=== PATIENT | male | born 1955 | race Native Hawaiian/Other Pacific Islander ===

== ENCOUNTER 2018-04-27 14:52 | Emergency (ER) | payer OTHER ==
--- NOTE | 2018-04-27 16:26 | Emergency Department Report ---
Blank Doc - Documentation Documentation: Patient is a 62-year-old male who slipped getting out of the shower last night and hit his head on the toilet. Patient does not remember the entire incident and was possibly amnesia to the event. Patient also does have some persistent dizziness and a mild headache as well. Patient will be sent for CT head and C-spine to rule o life-threatening conditions and reassessed ut
[2018-04-27] MEDS ORDERED: PERCOCET 5/325 PO ONE (16:32)
--- NOTE | 2018-04-27 16:36 | Emergency Department Report ---
ED Fall HPI - General Chief Complaint: Fall Stated Complaint: FELL AND HURT HEAD Time Seen by Provider: 04/27/18 16:21 Source: patient, family Mode of arrival: Ambulatory Limitations: No Limitations - History of Present Illness Initial Comments: Patient is a 62-year-old male who slipped getting out of the shower last night and hit his head on the toilet. Patient does not remember the entire incident and was possibly amnesia to the event. Patient also does have some persistent dizziness and a mild headache as well. Pain is 6 out of 10 and achy right side of head. Denies any cuts to his head. Tetanus vaccine is up-to -date. Denies any nausea or vomiting. Patient stated be evaluated status post fall MD Complaint: fall -: This evening Fall From: standing When Fall Occurred: other (last night) Fall Witnessed: yes, by family Place Fall Occurred: home Loss of Consciousness: unsure Prolonged Down Time?: no Symptoms Prior to Fall: none Location: head Severity: moderate Severity scale (0 -10): 6 Quality: aching Context: tripped/slipped Associated Symptoms: headache, lightheaded. denies: neck pain, numbness, weakness, chest paint, shortness of breath, abdominal pain, hematuria, unable to walk, vertigo, confusion - Related Data Previous Rx's Medication Instructions Recorded Last Taken Type Acetaminophen [Non-Aspirin Pain 500 mg PO Q8H PRN #12 tablet 04/27/18 Unknown Rx Relief] Allergies Allergy/AdvReac Type Severity Reaction Status Date / Time Penicillins Allergy Rash Verified 04/27/18 14:58 ED Review of Systems ROS: Stated complaint: FELL AND HURT HEAD Other details as noted in HPI Comment: All other systems reviewed and negative Constitutional: denies: chills, fever Eyes: denies: eye pain, vision change ENT: denies: ear pain, throat pain Respiratory: denies: cough, shortness of breath, SOB with exertion, SOB at rest , wheezing Cardiovascular: denies: chest pain, palpitations Gastrointestinal: denies: abdominal pain, nausea, vomiting, diarrhea Musculoskeletal: denies: back pain, joint swelling, arthralgia Skin: denies: rash, lesions Neurological: headache, other (dizziness). denies: weakness, numbness, paresthesias, confusion, abnormal gait, vertigo Hematological/Lymphatic: denies: easy bleeding, easy bruising ED Past Medical Hx - Past Medical History Previous Medical History?: Yes Hx Hypertension: Yes Hx Diabetes: Yes - Surgical History Past Surgical History?: Yes Additional Surgical History: Left foot - Family History Family history: hypertension - Social History Smoking Status: Current Every Day Smoker Substance Use Type: Alcohol, Prescribed - Medications Home Medications: Home Medications Medication Instructions Recorded Confirmed Last Taken Type Acetaminophen [Non-Aspirin Pain 500 mg PO Q8H PRN #12 tablet 04/27/18 Unknown Rx Relief] ED Physical Exam - General Limitations: No Limitations General appearance: alert, in no apparent distress - Head Head exam: Present: atraumatic, normocephalic, normal inspection, other (normal exam) - Eye Eye exam: Present: normal appearance, PERRL, EOMI. Absent: nystagmus, periorbital swelling, periorbital tenderness Pupils: Present: normal accommodation - ENT ENT exam: Present: normal exam, normal orophraynx, mucous membranes moist - Neck Neck exam: Present: normal inspection, full ROM, other (no C-spine tenderness). Absent: tenderness, meningismus, lymphadenopathy - Respiratory Respiratory exam: Present: normal lung sounds bilaterally. Absent: respiratory distress, chest wall tenderness, accessory muscle use - Cardiovascular Cardiovascular Exam: Present: regular rate, normal rhythm, normal heart sounds. Absent: systolic murmur, diastolic murmur - GI/Abdominal GI/Abdominal exam: Present: soft, normal bowel sounds. Absent: distended, tenderness, guarding, rebound, rigid, organomegaly, mass, bruit, pulsatile mass , hernia - Extremities Exam Extremities exam: Present: normal inspection, full ROM, normal capillary refill , other (no clubbing, cyanosis or edema. +2 pulses to all extremities and no neurovascular compromise). Absent: tenderness, pedal edema, joint swelling, calf tenderness - Back Exam Back exam: Present: normal inspection, full ROM, other (ambulates without any difficulties). Absent: tenderness, CVA tenderness (R), CVA tenderness (L), muscle spasm, paraspinal tenderness, vertebral tenderness, rash noted - Neurological Exam Neurological exam: Present: alert, oriented X3, normal gait, reflexes normal. Absent: motor sensory deficit - Expanded Neurological Exam Expanded Neurological exam: Absent: innattentive, memory loss-remote event, memory loss- recent event, ataxia, receptive aphasia, expressive aphasia, total aphasia, tremor, protecting the airway Patient oriented to: Present: person, place, time Speech: Present: fluid speech Cranial nerves: EOM's Intact: Normal, Gag Reflex: Normal, Tongue Deviation: Normal, Nystagmus: Normal, Facial Sensation: Normal Cerebellar function: Romberg: Normal Upper motor neuron: Pronator Drift: Normal, Sensory Extinction: Normal Sensory exam: Upper Extremity Light Touch: Normal, Upper Extremity Pin Prick: Normal, Upper Extremity Temperature: Normal, UE 2 Point Discrimination: Normal, Lower Extremity Light Touch: Normal, Lower Extremity Pin Prick: Normal, Lower Extremity Temperature: Normal, LE 2 Point Discrimination: Normal Motor strength exam: RUE: 5, LUE: 5, RLE: 5, LLE: 5 Best Eye Response (Colon): (4) open spontaneously Hernan Total: 4 - Psychiatric Psychiatric exam: Present: normal affect, normal mood - Skin Skin exam: Present: warm, dry, intact, normal color. Absent: rash ED Course Vital Signs 04/27/18 14:58 Temperature 98.6 F Pulse Rate 80 Respiratory 18 Rate Blood Pressure 143/81 O2 Sat by Pulse 98 Oximetry - Reevaluation(s) Reevaluation #1: 04/27/18 16:43 Patient received Percocet 5/325 one tablet by mouth for headache. He is stable and neurologically intact Reevaluation #2: 04/27/18 18:03 No changes in Neurological and neck exam ED Medical Decision Making - Radiology Data Radiology results: report reviewed ED scan of the head without contrast and CT scan of C-spine without contrast reveals no acute findings. These reports were dictated by radiologist and reviewed by myself. Patient: RUTH YUSUF MR#: [id number] : 1955 Acct:[id number] Age/Sex: 62 / M ADM Date: 04/27/18 Loc: ED Attending Dr: Ordering Physician: LYNN KAPOOR MD Date of Service: 04/27/18 Procedure(s): CT head/brain wo con Accession Number(s): [id number] cc: LYNN KAPOOR MD FINAL REPORT EXAM: CT HEAD/BRAIN WO CON HISTORY: head injury TECHNIQUE: CT head without contrast PRIORS: None. FINDINGS: No acute intra-axial or extra-axial hemorrhage is identified. There is no evidence of midline shift or mass effect. The ventricles and sulci are within normal limits. Alvarado-white matter differentiation is intact. No acute parenchymal abnormalities seen. Bony calvarium is grossly intact. Visualized portions of the mastoids and paranasal sinuses are unremarkable. IMPRESSION: Negative CT head Transcribed By: CECY Dictated By: AB TY MD Electronically Authenticated By: AB TY MD Signed Date/Time: 04/27/181729 DD/ 29 TD/TT: 04/27/181729 Patient: RUTH YUSUF MR#: [id number] : 1955 Acct:[id number] Age/Sex: 62 / M ADM Date: 04/27/18 Loc: ED Attending Dr: Ordering Physician: LYNN KAPOOR MD Date of Service: 04/27/18 Procedure(s): CT cervical spine wo con Accession Number(s): [id number] cc: LYNN KAPOOR MD FINAL REPORT EXAM: CT CERVICAL SPINE WO CON HISTORY: fall injury' TECHNIQUE: CT cervical spine with reconstructions PRIORS: None. FINDINGS: Vertebral bodies demonstrate normal height and alignment. There is disc space narrowing from C3-C4 through C6-C7 with some reversal of normal cervical lordosis. Multilevel facet joint arthropathy noted. The facet joints demonstrate normal alignment. The spinous processes are intact. Craniocervical junction is unremarkable. C1 and C2 are intact. IMPRESSION: Degenerative disc disease and facet joint arthropathy No acute traumatic abnormality identified Transcribed By: CECY Dictated By: AB TY MD Electronically Authenticated By: AB TY MD Signed Date/Time: 04/27/181736 DD/ 36 TD/TT: 04/27/181736 - Medical Decision Making ED course: 62-year-old male here reports that he slipped and fell in the bathtub and hit his head last night. He is unsure whether he passed out. Patient's reported headache to left side of his head. Denies any neck pain. Denies any nausea or vomiting. He took Motrin and Tylenol last night without any relief of pain and is here today to be evaluated. Patient was examined by myself and neurological exam, back exam and neck exam, physical exam normal abrasion. CT scan of the head and brain done without contrast and CT scan of C-spine without contrast and dictated by radiologist. Reports reviewed by myself and normal findings. I discussed this with a castillo and his family and they voice understanding. I also discussed that he needs to go to urgent care or primary care physician for repeat neurological test tomorrow. I also instructed them to read discharge instruction on closed head injury and if they develop any signs or any symptoms to return to the emergency room. A/P 1: Accidental fall yesterday-fall prevention and elderly 2: Minor head injury with concussion: CT scan of the head without contrast is normal and patient neurological exam is normal. Patient for to follow up with his primary care doctor which he does have 1 or urgent care for neurological check tomorrow 3: Posttraumatic headache -patient given Percocet 5/325 mg one tablet. Emergency room which relieved his pain. Was sent home in Tylenol 4:Dizziness- Resolved Patient educated on minor head injury, went to follow-up, diagnosis and follow -up up exam in 24 hours. He shouldn't discharged home family in stable condition. His vital signs are stable. He is nontoxic in behavior, Discharged home in stable condition to follow up with PCP and urgent care tomorrow. Discharged on a prescription for Tylenol. I discussed with family and patient that if he becomes listless, developed vomiting, abnormal gait, decreased appetite, increased sleepiness and change from normal behavior to take - Differential Diagnosis ICH, skull fracture, hematoma, concussion, traumatic headache Critical care attestation.: If time is entered above; I have spent that time in minutes in the direct care of this critically ill patient, excluding procedure time. ED Disposition Clinical Impression: Dizziness Closed head injury with concussion Qualifiers: Encounter type: initial encounter Loss of consciousness presence/duration: without LOC Qualified Code(s): S06.0X0A - Concussion without loss of consciousness, initial encounter Post-traumatic headache Qualifiers: Headache chronicity pattern: acute headache Intractability: not intractable Qualified Code(s): G44.319 - Acute post-traumatic headache, not intractable Accidental fall Qualifiers: Encounter type: initial encounter Qualified Code(s): W19.XXXA - Unspecified fall, initial encounter Disposition: DC- TO HOME OR SELFCARE Is pt being admited?: No Does the pt Need Aspirin: No Condition: Stable Instructions: Lightheadedness (ED), Fall Prevention for Older Adults (ED), Minor Head Injury (ED), Concussion (ED) Additional Instructions: Please follow-up with your Christel care physician or urgent care tomorrow status post closed head injury for repeat neurological checks Take Tylenol as prescribed for headache He developed, increasing dizziness, increased headache, eye pain, blurred vision , nausea and vomiting, slurred speech and over normal gait. Return to the emergency room Prescriptions: Acetaminophen [Non-Aspirin Pain Relief] 500 mg PO Q8H PRN #12 tablet PRN Reason: headache Referrals: PRIMARY CAREMD [Primary Care Provider] - 04/28/18 Forms: Accompanied Note
--- NOTE | 2018-04-27 17:34 | Cat Scan Report ---
FINAL REPORT EXAM: CT HEAD/BRAIN WO CON HISTORY: head injury TECHNIQUE: CT head without contrast PRIORS: None. FINDINGS: No acute intra-axial or extra-axial hemorrhage is identified. There is no evidence of midline shift or mass effect. The ventricles and sulci are within normal limits. Alvarado-white matter differentiation is intact. No acute parenchymal abnormalities seen. Bony calvarium is grossly intact. Visualized portions of the mastoids and paranasal sinuses are unremarkable. IMPRESSION: Negative CT head
--- NOTE | 2018-04-27 17:41 | Cat Scan Report ---
FINAL REPORT EXAM: CT CERVICAL SPINE WO CON HISTORY: fall injury' TECHNIQUE: CT cervical spine with reconstructions PRIORS: None. FINDINGS: Vertebral bodies demonstrate normal height and alignment. There is disc space narrowing from C3-C4 through C6-C7 with some reversal of normal cervical lordosis. Multilevel facet joint arthropathy noted. The facet joints demonstrate normal alignment. The spinous processes are intact. Craniocervical junction is unremarkable. C1 and C2 are intact. IMPRESSION: Degenerative disc disease and facet joint arthropathy No acute traumatic abnormality identified
[2018-04-27 18:18] VITALS: BP 140/80
== END 2018-04-27 18:15 | disposition home or self-care (01) ==
LOC: ED 14:52
DX: S06.0X0A Concussion without loss of consciousness, initial encounter (principal); G44.319 Acute post-traumatic headache, not intractable; I10 Essential (primary) hypertension; E11.9 Type 2 diabetes mellitus without complications; F17.200 Nicotine dependence, unspecified, uncomplicated; Z88.0 Allergy status to penicillin; W19.XXXA Unspecified fall, initial encounter; Y93.89 Activity, other specified; Y92.89 Other specified places as the place of occurrence of the external cause; Y99.8 Other external cause status
CPT/HCPCS: 70450; 72125; 99283